=== PATIENT | female | born 1960 | race Hispanic/Latino ===

== ENCOUNTER 2017-08-07 13:34 | Emergency (ER) | payer OTHER ==
[2017-08-07] MEDS ORDERED: Sodium Chloride 0.9% 1,000 ML IV STA (13:55)
--- NOTE | 2017-08-07 14:20 | ED PDOC ---
HPI: Fever Have you had recent travel within the past 21 days to any of the following countries: [place], [place], [place] or [place]?: Yes Additional Comments: 56 y/o female with past medical history of Crohns disease pre presents to the ED for nausea, fever and cough that started acutely today morning. 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. Patient reports travelling to [place] and arrived in the country about a week ago. She notes that she has chills and tends to get dehydrated. Denies vomiting, diarrhea or any further medical complaints. PMD: Dr. Ashvin Nelson Past Medical History Vital Signs: Last Vital Signs Temp 101.3 F H 08/07/17 13:36 Pulse 114 H 08/07/17 13:36 Resp 16 08/07/17 13:36 BP 129/86 08/07/17 13:36 Pulse Ox 100 08/07/17 14:29 - Medical History PMH: Crohn's Disease - Surgical History Other surgeries: Colectomy - Family History Family History: States: Unknown Family Hx - Social History Current smoker - smoking cessation education provided: No (Never smoked) Alcohol: Social Drugs: Denies - Allergies Allergies/Adverse Reactions: Allergies Allergy/AdvReac Type Severity Reaction Status Date / Time No Known Allergies Allergy Verified 08/07/17 13:36 Review of Systems ROS Statement: Except As Marked, All Systems Reviewed And Found Negative (As per HPI, otherwise negative) Constitutional: Positive for: Fever, Chills, Other (Dehydration) Respiratory: Positive for: Cough Gastrointestinal: Positive for: Nausea. Negative for: Vomiting, Diarrhea Physical Exam - Reviewed Nursing Documentation Reviewed: Yes Vital Signs Reviewed: Yes - Physical Exam Appears: Positive for: Well, Non-toxic, Uncomfortable (Mild discomfort) Head Exam: Positive for: ATRAUMATIC, NORMAL INSPECTION, NORMOCEPHALIC Skin: Positive for: Normal Color, Warm, Dry Eye Exam: Positive for: EOMI, Normal appearance, PERRL ENT: Positive for: Other (Sightly dry mucosa) Neck: Positive for: Normal, Painless ROM, Supple Cardiovascular/Chest: Positive for: Regular Rate, Rhythm. Negative for: Murmur Respiratory: Positive for: Normal Breath Sounds. Negative for: Accessory Muscle Use, Respiratory Distress Gastrointestinal/Abdominal: Positive for: Normal Exam, Soft. Negative for: Tenderness Back: Positive for: Normal Inspection Extremity: Positive for: Normal ROM. Negative for: Deformity Neurologic/Psych: Positive for: Alert, Oriented (x3) - ECG O2 Sat by Pulse Oximetry: 100 (RA) Pulse Ox Interpretation: Normal Medical Decision Making Medical Decision Making: Time: 13:54 Initial Impression: Viral illness Differential Diagnosis: URI, Flu, Acutre gastritis, Acute flare crohns disease Plan: CMP Lipase Urine dipstick CBC w/ differential Sed Rate Pepcid 20mg PO Toradol 30mg IVP Sodium chloride 1L IVP Ondansetron 4mg IVP Blood culture IV insertion Influeza A B Reevaluation Scribe Attestation: Documented by Macie Meza acting as a scribe for Joy Gant MD. Scribe Attestation: All medical record entries made by the Scribe were at my direction and personally dictated by me. I have reviewed the chart and agree that the record accurately reflects my personal performance of the history, physical exam, medical decision making, and the department course for this patient. I have also personally directed, reviewed, and agree with the discharge instructions and disposition. Disposition - Clinical Impression Clinical Impression: Nausea & vomiting, Crohn disease - Patient ED Disposition Is Patient to be Admitted: Transfer of Care - Disposition Disposition: Transfer of Care Disposition Time: 14:52 Condition: GUARDED Forms: [email or web address] (Syrian) Patient Signed Over To: Estella Verma
[2017-08-07 14:39] LABS: BASO % 0.7 % (0.0-2.0); EOS % 0.2 % (0.0-4.0); HEMOGLOBIN 12.8 g/dL (12.0-16.0); LYMPH # 0.2 K/uL (1.0-4.3); LYMPH % 4.6 % (20.0-40.0); MEAN CELL VOLUME 100.6 fl (81.0-99.0); MEAN CORPUSCULAR HEMOGLOBIN 34.6 pg (27.0-31.0); MEAN CORPUSCULAR HGB CONC 34.4 g/dL (33.0-37.0); MEAN PLATELET VOLUME 7.8 fl (7.2-11.7); MONO # 0.3 K/uL (0.0-0.8); MONO % 6.9 % (0.0-10.0); NEUT # 4.4 K/uL (1.8-7.0); NEUT % 87.6 % (50.0-75.0); PLATELET COUNT 305 K/uL (130-400); RBC 3.69 Mil/uL (3.80-5.20); RED CELL DISTRIBUTION WIDTH 14.7 % (11.5-14.5); WHITE BLOOD COUNT 5.1 K/uL (4.8-10.8)
[2017-08-07 14:51] LABS: ALB/GLOB RATIO 1.2 (1.0-2.1); ALBUMIN 4.2 g/dL (3.5-5.0); ALT/SGPT 84 U/L (9-52); AST/SGOT 55 U/L (14-36); BLOOD UREA NITROGEN 8 mg/dl (7-17); GFR AFRICAN-AMERICAN > 60; GFR NON-AFRICAN AMERICAN > 60; LIPASE 38 U/L (23-300)
[2017-08-07 15:38] VITALS: BP 131/77; PULSE 99; RESP 18; TEMP 99; O2SAT 95
[2017-08-07 18:22] LABS: ANISOCYTOSIS SLIGHT; LARGE PLATELETS PRESENT; LYMPHOCYTE 7 % (20-50); MONOCYTE 8 % (0-10); NEUTROPHIL 85 % (42-75); OVALOCYTES SLIGHT; PLATELET ESTIMATE NORMAL (NORMAL); TOTAL CELLS COUNTED 100
== END 2017-08-07 15:43 | disposition home or self-care (01) ==
LOC: H.ER 13:34
DX: R11.2 Nausea with vomiting, unspecified (principal); K50.90 Crohn's disease, unspecified, without complications; J11.1 Influenza due to unidentified influenza virus with other respiratory manifestations; K29.70 Gastritis, unspecified, without bleeding
CPT/HCPCS: 80053; 83690; 85025; 85651; 87040; 87804; 96361; 96374; 96375; 99284; J1885; J2405; J7040